=== PATIENT | male | born 1960 | race Caucasian/White ===

== ENCOUNTER 2017-03-25 14:26 | Emergency (ER) | payer SELFPAY ==
--- NOTE | 2017-03-25 15:34 | ERNOTE ---
Medical Problem HPI - General Chief Complaint: General Assessment Time Seen by Provider: 03/25/17 15:03 Source: patient Exam Limitations: no limitations - Immun/Allergies/Home Medications Allergies/Adverse Reactions: Allergies No Known Allergies Allergy (Verified 03/25/17 14:35) Home Medications: HOME MEDICATIONS Duloxetine HCl [Cymbalta] 60 mg PO DAILY #30 capsule. 03/25/17 [Last Taken Unknown] - History of Present History Narrative: Patient has had diabetic neuropathy for 8-9 years. he was on gapabentin first, then lyrica and most recently on cymbalta which has helped him well. Due to moving and loosing insurance he has been off his cymbalta for a few months and has had increasing severe pain in both legs. 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 He states that he still has his other medications, is taking his insulin as scheduled. He was in DKA earlier this year and admitted to the hospital, not sure what the cause was. He has been having 2-3 loose BM daily, cramping before, but no abdominal pain, no nausea or vomiting. when he checked his sugar this morning it was in the 190' s Review of Systems - Review of Systems Constitutional: Absent: recent illness ENT: Absent: nose congestion, sore throat Respiratory: Absent: shortness of breath, cough Cardiology: Absent: chest pain Gastrointestinal/Abdominal: Present: See HPI, diarrhea. Absent: nausea, vomiting Genitourinary: Present: no symptoms reported Musculoskeletal: Absent: back pain Neurological: Absent: See HPI, weakness, numbness - Patient's Past Medical History Patient History - Medical: Diabetes Type 2 Insulin Dependent, Other Patient History - Cardiac/Respiratory: Hypertension, Hyperlipidemia Patient History - Surgical Procedures: No surgical history - Family History Mother Family History - Medical: Diabetes Type 2 Father Family History - Medical: History Unknown - Social History Living Situations: home Psych History: Hx of Anxiety, Hx of Depression Smoking Status: Never smoker Have you smoked in the past 12 months: No Do you dip or chew tobacco: No Alcohol Use: none Drug Use: none Physical Exam - Physical Exam General Appearance: Present: wd/wn, alert, no apparent distress Respiratory: Present: no respiratory distress, normal breath sounds, no accessory muscle use, lungs clear Cardiovascular/Chest: Present: regular rate, rhythm, no murmur Peripheral Pulses: N=norm/S=strong/W=weak/B=bound/A=absent: Dorsalis-pedis (R): Normal, Dorsalis-pedis (L): Normal Gastrointestinal/Abdominal: Present: normal bowel sounds, nontender, nondistended, soft Extremity Exam: Present: normal inspection, non-tender, other - no sign of injury Neurological Exam: Present: alert, oriented, normal mood/affect Skin Exam: Present: normal color, warm/dry ED Progress - Results and Orders Patient's Lab Results:: I have reviewed the patient's lab results. - Vital Signs Patient's Vital Signs:: I have reviewed the patient's vital signs. Vital Signs: Vital Signs 03/25/17 14:30 Temperature 36.6 C Pulse Rate 72 Respiratory 16 Rate Blood Pressure 122/71 O2 Sat by Pulse 100 Oximetry - EKG EKG: NSR, no ST T wave changes, other - peaked T wave EKG read: Interp. by me - Progress/Reassessment Chief Complaint: General Assessment Progress Note-Subjective: 03/25/17 17:27 discussed elevated potassium, patient does not want to get admitted, will give insulin and albuterol and recheck potassium, still trying to obtain patient medication list, states he [facility] to [facility] 03/25/17 20:06 discussed repeat lab results with patient, still doesn't want to get admitted Departure Clinical Impression: Hyperkalemia Diabetic neuropathy Qualifiers: Diabetes mellitus type: type 2 Diabetes mellitus complication detail: diabetic polyneuropathy Qualified Code(s): E11.42 - Type 2 diabetes mellitus with diabetic polyneuropathy - Departure Disposition: Home self-care Condition: Good Instructions: Diabetic Neuropathy, Form - Excuse from Work, School, or Physical Activity Additional Instructions: take your insulin to keep your glucose controlled stop the lisinopril as it might increase your potassium have your potassium rechecked in 1-2days get started on the cymbalta again follow up with your doctor as scheduled in April Prescriptions: Duloxetine HCl [Cymbalta] 60 mg PO DAILY #30 capsule.
[2017-03-25 16:03] LABS: Hematocrit 36.5 % (42.0-52.0); Hemoglobin 12.5 gm/dL (13.5-18.0); Mean Cell Volume 94.8 fl (78-100); Mean Corpuscular Hemoglobin 32.5 pg (27-31); Mean Corpuscular Hgb Conc 34.2 g/dl (32-36); Mean Platelet Volume 9.1 fl (6.0-9.5); Neutrophil # 5.6 K/mm3 (1.3-6.0); Platelet Count 195 K/mm3 (150-450); Red Blood Count 3.85 M/mm3 (4.7-6.0); Red Cell Distribution Width 13.8 % (11.5-14.0); White Blood Count 8.3 K/mm3 (4.0-10.5)
[2017-03-25 16:13] LABS: Urine Bilirubin Negative (NEGATIVE); Urine Ketone Negative (NEGATIVE); Urine Nitrite Negative (NEGATIVE); Urine Protein Negative (NEGATIVE); Urine Specific Gravity 1.015 SP.GR. (1.005-1.030); Urine Urobilinogen Normal (NORMAL); Urine pH 5.5 pH (5.0-7.0)
[2017-03-25 16:26] LABS: Urine Appearance Clear; Urine Bacteria TRACE; Urine Blood 5 /ul (NEGATIVE); Urine Color Yellow; Urine RBC None Seen /hpf (0-5); Urine WBC None Seen /hpf (0-5)
[2017-03-25 16:28] LABS: ALT 21 U/L (19-67); AST 13 U/L (0-48); Albumin * 4.1 gm/dl (3.4-5.0); Alkaline Phosphatase * 110 U/L (50-170); Anion Gap 14.6 mmol/L (6.8-13.8); BUN/Creatinine Ratio 21.9 (9.0-21.6); Bilirubin, Total 0.7 mg/dL (0.0-1.1); Blood Urea Nitrogen 25 mg/dL (6-23); Ca. Corrected For Albumin 8.3 mg/dL (8.4-10.2); Calcium * 8.7 mg/dL (7.9-10.9); Carbon Dioxide 24.5 mmol/L (24-32.6); Chloride 103 mmol/L (97-106); Glucose * 317 mg/dL (70-110); Potassium 6.1 mmol/L (3.4-4.6); Sodium 136 mmol/L (132-142); Total Protein 7.6 gm/dL (6.2-8.2)
[2017-03-25] MEDS ORDERED: INSULIN LISPRO 100 UNITS/ML VIAL SC ONE (17:22)
[2017-03-25] MEDS ORDERED: ALBUTEROL SULFATE 2.5 MG/0.5 ML VIAL.NEB IH ONE ×2 (17:23→17:44)
[2017-03-25] MEDS ORDERED: INSULIN LISPRO 100 UNITS/ML VIAL ONE (17:32)
[2017-03-25 19:28] LABS: Potassium 5.7 mmol/L (3.4-4.6)
[2017-03-25 20:20] VITALS: BP 102/69
== END 2017-03-25 20:16 | disposition home or self-care (01) ==
LOC: ER 14:26
DX: E87.5 Hyperkalemia (principal); E11.42 Type 2 diabetes mellitus with diabetic polyneuropathy

== ENCOUNTER 2017-03-26 13:25 | Observation (INO) | payer SELFPAY ==
[2017-03-26 14:31] LABS: Hematocrit 34.9 % (42.0-52.0); Hemoglobin 11.8 gm/dL (13.5-18.0); Mean Cell Volume 94.8 fl (78-100); Mean Corpuscular Hemoglobin 32.1 pg (27-31); Mean Corpuscular Hgb Conc 33.8 g/dl (32-36); Mean Platelet Volume 9.3 fl (6.0-9.5); Neutrophil # 3.4 K/mm3 (1.3-6.0); Neutrophil % 54.6 % (42-75.0); Platelet Count 196 K/mm3 (150-450); Red Blood Count 3.68 M/mm3 (4.7-6.0); Red Cell Distribution Width 13.7 % (11.5-14.0); White Blood Count 6.1 K/mm3 (4.0-10.5)
[2017-03-26 14:40] LABS: Anion Gap 13.9 mmol/L (6.8-13.8); Calcium * 8.7 mg/dL (7.9-10.9); Carbon Dioxide 26.5 mmol/L (24-32.6); Estimated Creat Clear 68.4; Magnesium 1.9 mg/dL (1.2-2.8); Potassium 6.4 mmol/L (3.4-4.6)
--- NOTE | 2017-03-26 14:40 | ERNOTE ---
Medical Problem HPI - General Chief Complaint: General Assessment Time Seen by Provider: 03/26/17 14:01 Source: patient Exam Limitations: no limitations - Immun/Allergies/Home Medications Immunizations: IMMUNIZATION HX Immunizations Up to Date Yes History of Influenza Vaccine More Information Required Hx Pneumococcal Vaccination More Information Required Allergies/Adverse Reactions: Allergies No Known Allergies Allergy (Verified 03/25/17 14:35) Home Medications: HOME MEDICATIONS Duloxetine HCl [Cymbalta] 60 mg PO DAILY #30 capsule. 03/25/17 [Last Taken Unknown] Atenolol [Tenormin] 25 mg PO DAILY 03/26/17 [Last Taken Unknown] Atorvastatin Calcium 40 mg PO DAILY 03/26/17 [Last Taken Unknown] Insul NPH Hu Rec/Ins Rg Hu Rec [Novolin 70/30 100U/ml] 40 units SQ BID 03/26/17 [Last Taken Unknown] LORazepam [Ativan] 1 mg PO HS 03/26/17 [Last Taken Unknown] Lisinopril/Hydrochlorothiazide [Lisinopril-Hctz 10-12.5 mg Tab] 1 each PO DAILY 03/26/17 [Last Taken Unknown] metFORMIN HCL [Fortamet] 1,000 mg PO DAILY 03/26/17 [Last Taken Unknown] - History of Present History Narrative: Patient was seen here last night and was treated for his hyperglycemia with concomitant hyperkalemia. Patient was given IV fluids and insulin and both his blood sugar and his potassium came down. He is instructed to come to the lab to recheck his potassium and when he called his family doctor they told him to come back to the emergency department. Patient has no complaint to speak of and we will recheck his laboratory tests here in the ED. Review of Systems - Review of Systems Constitutional: Present: See HPI EYE: Present: no symptoms reported ENT: Present: no symptoms reported Respiratory: Present: no symptoms reported Cardiology: Present: no symptoms reported Gastrointestinal/Abdominal: Present: no symptoms reported Genitourinary: Present: no symptoms reported Musculoskeletal: Present: no symptoms reported Skin: Present: no symptoms reported Neurological: Present: no symptoms reported Endocrine: Present: no symptoms reported Hematologic/Lymphatic: Present: no symptoms reported Psych: Present: no symptoms reported - Patient's Past Medical History Patient History - Medical: Diabetes Type 2 Insulin Dependent, Other Patient History - Cardiac/Respiratory: Hypertension, Hyperlipidemia Patient History - Surgical Procedures: No surgical history - Family History Mother Family History - Medical: Diabetes Type 2 Father Family History - Medical: History Unknown - Social History Psych History: Hx of Anxiety, Hx of Depression - Immunizations Immunizations Up to Date: Yes Hx Pneumococcal Vaccination: More Information Required to Determine History of Influenza Vaccine: More Information Required to Determine Physical Exam - Physical Exam General Appearance: Present: wd/wn, alert, no apparent distress Eye Exam: Normal inspection: bilateral, PERRL: bilateral Ears, Nose, Throat: Present: normal ENT inspection, H, normal pharynx Neck: Present: normal inspection, nontender Respiratory: Present: no respiratory distress, normal breath sounds, no accessory muscle use, chest nontender, lungs clear Cardiovascular/Chest: Present: regular rate, rhythm, no murmur, normal peripheral pulses Gastrointestinal/Abdominal: Present: normal bowel sounds, nontender, nondistended, soft, no organomegaly Rectal Exam: Present: deferred Back Exam: Present: normal inspection, normal range of motion Extremity Exam: Present: normal inspection, non-tender, no edema, normal range of motion Neurological Exam: Present: alert, oriented, normal mood/affect Skin Exam: Present: normal color, warm/dry Lymphatic Exam: Present: no adenopathy ED Progress - Results and Orders Patient's Lab Results:: I have reviewed the patient's lab results. - Vital Signs Patient's Vital Signs:: I have reviewed the patient's vital signs. Vital Signs: Vital Signs 03/26/17 03/26/17 13:41 14:14 Temperature 36.8 C Pulse Rate 70 68 Respiratory 20 12 Rate Blood Pressure 108/78 116/42 O2 Sat by Pulse 100 98 Oximetry - EKG EKG: NSR EKG read: Interp. by me - Progress/Reassessment Chief Complaint: General Assessment Plan - Plan Plan: Patient will be admitted to the care of Dr. Reynolds. Unclear etiology for the elevated potassium, other than perhaps chronically elevated blood sugar. I'm not convinced that the patient's been taken his lisinopril hydrochlorothiazide to help control blood pressure as this would most likely help drive the potassium back into the normal range. Patient was given 50 mg of Kayexalate emergency department and will be admitted to a telemetry bed. Departure Clinical Impression: Hyperkalemia Hyperglycemia due to type 2 diabetes mellitus Qualifiers: Diabetes mellitus moth exterminator insulin use: with moth exterminator use Qualified Code(s): E11.65 - Type 2 diabetes mellitus with hyperglycemia; Z79.4 - retirement (current ) use of insulin; Z79.4 - long term care pharmacist (current) use of insulin; Z79.4 - long term care pharmacist (current) use of insulin; Z79.4 - long term care pharmacist (current) use of insulin - Departure Disposition: [facility] Condition: Fair
[2017-03-26] MEDS ORDERED: SODIUM POLYSTYRENE SULFON/SORB 15 G/60 ML BTL PO ONE (15:09)
[2017-03-26] MEDS ORDERED: SODIUM POLYSTYRENE SULFON/SORB 15 G/60 ML BTL ONE (15:29)
[2017-03-26] MEDS ORDERED: FLU VACC QS2017-18(6MOS UP)/PF 60 MCG/0.5 ML SYRINGE IM ONE (16:27)
[2017-03-26] MEDS: ACETAMINOPHEN 325 MG TABLET PO PRN ×2 (17:51→22:58)
--- NOTE | 2017-03-26 19:40 | HP ---
Chief Complaint - Chief Complaint Date of Service: 03/26/17 Time of Service: 19:26 Chief Complaint: hyperkalemia History of Present Illness: Patient is a 56 year old male with a past medical history significant for HTN, HLD, and DMII who presented last evening to the ER with elevated glucose (300) and potassium. He was discharged and upon followup labs today, his potassium was elevated even more to 6.4. He will be admitted to observation overnight for continuous telemetry monitoring and serial laboratory work. He received 15mg of kayexelate in the ER. - Patient's Past Medical History Patient History - Medical: Diabetes Type 2 Insulin Dependent, Other Patient History - Cardiac/Respiratory: Hypertension, Hyperlipidemia Patient History - Surgical Procedures: No surgical history Patient History - Other: None - Family History Family History:: no untoward family reactions to anesthesia, no familial bleeding tendencies, no family history of clotting disorders, no family history of premature - Family History Mother Family History - Medical: Diabetes Type 2 Insulin Dependent Father Family History - Medical: History Unknown Brother Family History - Medical: Diabetes Type 2 Insulin Dependent - Social History Living Situations: other Psych History: Hx of Anxiety, Hx of Depression Smoking Status: Never smoker Have you smoked in the past 12 months: No Do you dip or chew tobacco: No Alcohol Use: none Drug Use: none - Immunizations Immunizations Up to Date: No Hx Pneumococcal Vaccination: No History of Influenza Vaccine: No Review Of Systems (GEN) - Review of Systems Generalized/Overall Review: Present: No Symptoms Reported EENTM: Present: No Symptoms Reported Respiratory: Present: No Symptoms Reported Cardiac: Present: No Symptoms Reported Abdominal: Present: Diarrhea Musculoskeletal: Present: No Symptoms Reported Neurological: Present: No Symptoms Reported Skin: Present: No Symptoms Reported Endocrine: Present: No Symptoms Reported Immunizations: IMMUNIZATION HX Immunizations Up to Date Yes History of Influenza Vaccine More Information Required Hx Pneumococcal Vaccination More Information Required Allergies/Adverse Reactions: Allergies Allergy/AdvReac Type Severity Reaction Status Date / Time No Known Allergies Allergy Verified 03/26/17 17:23 Home Medications: HOME MEDICATIONS Duloxetine HCl [Cymbalta] 60 mg PO DAILY #30 capsule. 03/25/17 [Last Taken Unknown] Atenolol [Tenormin] 25 mg PO DAILY 03/26/17 [Last Taken Unknown] Atorvastatin Calcium [Lipitor] 40 mg PO HS 03/26/17 [Last Taken Unknown] Insul NPH Hu Rec/Ins Rg Hu Rec [Novolin 70/30 100U/ml] 40 units SQ BID 03/26/17 [Last Taken Unknown] LORazepam [Ativan] 1 mg PO HS 03/26/17 [Last Taken Unknown] Lisinopril/Hydrochlorothiazide [Lisinopril-Hctz 10-12.5 mg Tab] 1 each PO DAILY 03/26/17 [Last Taken Unknown] metFORMIN HCL [Fortamet] 1,000 mg PO DAILY 03/26/17 [Last Taken Unknown] Exam - Exam Vital Signs: Vital Signs - Last Taken Temp 36.8 C 03/26/17 19:10 Pulse 63 03/26/17 19:10 Resp 18 03/26/17 19:10 BP 111/65 03/26/17 19:10 Pulse Ox 98 RA 03/26/17 19:10 Constitutional: Present: Alert, Oriented x3, Cooperative, No distress ENT Exam: Present: normal ENT inspection Eye Exam: bilateral eye: normal inspection, PERRL Back Exam: Present: normal inspection, no CVA tenderness, no vertebral tenderness Respiratory: Present: chest non-tender, lungs clear, normal breath sounds, no respiratory distress, no accessory muscle use Cardiovascular/Chest: Present: normal peripheral pulses, regular rate, rhythm, no chest tenderness, no edema, no gallop, no JVD, no murmur Peripheral Pulses: dorsalis-pedis (R): 2+, dorsalis-pedis (L): 2+, radial (R): 2 +, radial (L): 2+ Abdomen: Present: Normal bowel sounds, soft, nontender, nondistended, no rebound tenderness, no hepatospenomegaly, no masses Extremity: Present: normal range of motion, non-tender, normal inspection, no pedal edema, no calf tenderness, normal capillary refill Skin Exam: Present: normal color, warm/dry, no cyanosis Lymphatic: Present: no adenopathy Neurologic: Present: no motor/sensory deficits, alert, normal mood/affect, oriented x 3 Appearance: Present: appropriate appearance, neat, no memory impairment Eye contact: Present: cooperative Thoughts: Present: normal thought pattern Diagnostic Studies: Laboratory Results Laboratory Tests 03/26/17 03/26/17 14:20 14:20 WBC 6.1 D RBC 3.68 L Hgb 11.8 L Hct 34.9 L Plt Count 196 Sodium 138 Potassium 6.4 H Chloride 104 Carbon Dioxide 26.5 Anion Gap 13.9 H BUN 28 H Creatinine 1.22 Random Glucose 204 H Calcium 8.7 Magnesium 1.9 Assessment/Plan - Assessment/Plan (1) Noncompliance with medication regimen Assessment: Pt is very well educated on 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 He understand the complications of poorly controlled diabetes. He attributes most of his noncompliance with his insulin regimen due to work as he works variable shifts and doesn't always take his insulin at the schedule time. He also admits he only occasional follows a diabetic diet. He verbalizes understanding of the importance to continue to maintain proper control of his diabetes with strict adherence to his medication regimen and diet. Problem: Acute (2) Hyperglycemia due to type 2 diabetes mellitus Assessment: Pt with history of medication noncompliance and elevated glucose levels resulting in hypercalemia. Will resume current regimen, check blood glucose levels ac/hs, place on consistent carb diet, and provide diabetic teaching. Problem: Chronic Qualifiers: Diabetes mellitus terminal gauger insulin use: with assisted use Qualified Code( s): E11.65 - Type 2 diabetes mellitus with hyperglycemia; Z79.4 - care home ( current) use of insulin; Z79.4 - terminal gauger (current) use of insulin; Z79.4 - terminal gauger (current) use of insulin; Z79.4 - terminal gauger (current) use of insulin (3) Hyperkalemia Assessment: Hyperkalemia secondary to elevated glucose secondary to medication noncompliance. Will recheck potassium now, pt denies any bowel movements since the administration of kayexelate in ER. Will continue cardiac monitoring overnight to monitor for arrhythmias. Problem: Acute (4) HTN (hypertension) Assessment: Will continue home regimen. On HCTZ, could be attributing to hyperkalemia, will reassess this in am. BP has been properly controlled since admission. Problem: Acute (5) Diabetic neuropathy Problem: Chronic
[2017-03-26] MEDS ORDERED: INSUL NPH HU REC/INS RG HU REC 100 UNITS/ML VIAL SC SCH (21:00)
[2017-03-26] MEDS ORDERED: ATORVASTATIN CALCIUM 40 MG TABLET PO SCH (21:00)
[2017-03-26] MEDS ORDERED: LORazepam 1 MG TABLET PO SCH (21:00)
[2017-03-26] MEDS ORDERED: HUM INSULIN NPH/REG INSULIN HM 100 UNIT/ML VIAL SC ONE (21:25)
[2017-03-26] MEDS: HUM INSULIN NPH/REG INSULIN HM 100 UNIT/ML VIAL SC SCH (21:47)
[2017-03-27 06:04] LABS: Albumin * 3.5 gm/dl (3.4-5.0); Anion Gap 13.3 mmol/L (6.8-13.8); BUN/Creatinine Ratio 27.5 (9.0-21.6); Bilirubin, Total 0.4 mg/dL (0.0-1.1); Ca. Corrected For Albumin 8.7 mg/dL (8.4-10.2); Calcium * 8.6 mg/dL (7.9-10.9); Carbon Dioxide 25.1 mmol/L (24-32.6); Potassium 4.4 mmol/L (3.4-4.6); Total Protein 6.5 gm/dL (6.2-8.2)
[2017-03-27 06:41] VITALS: BP 127/62
[2017-03-27] MEDS: HUM INSULIN NPH/REG INSULIN HM 100 UNIT/ML VIAL SC SCH (08:29)
[2017-03-27] MEDS ORDERED: HYDROCHLOROTHIAZIDE 12.5 MG CAPSULE PO SCH (09:00)
[2017-03-27] MEDS ORDERED: HUM INSULIN NPH/REG INSULIN HM 100 UNIT/ML VIAL SC SCH (09:00)
[2017-03-27] MEDS ORDERED: LISINOPRIL 10 MG TABLET PO SCH (09:00)
[2017-03-27] MEDS ORDERED: DULoxetine HCL 30 MG CAPSULE.SA PO SCH (09:00)
[2017-03-27] MEDS ORDERED: ATENOLOL 25 MG TABLET PO SCH (09:00)
--- NOTE | 2017-03-27 09:12 | DS ---
(1) Hyperkalemia Problem: Resolved (2) Noncompliance with medication regimen Problem: Chronic (3) Hyperglycemia due to type 2 diabetes mellitus Problem: Chronic Qualifiers: Diabetes mellitus oysterman insulin use: with oysterman use Qualified Code( s): E11.65 - Type 2 diabetes mellitus with hyperglycemia; Z79.4 - laborer marine terminal ( current) use of insulin; Z79.4 - laborer marine terminal (current) use of insulin; Z79.4 - laborer marine terminal (current) use of insulin; Z79.4 - senior living (current) use of insulin Description of Stay: ADMISSION DATE: 03/26/2017 DISCHARGE DATE: 03/27/2017 ADMISSION HPI by HATTIE Castillo: Patient is a 56 year old male with a past medical history significant for HTN, HLD, and DMII who presented last evening to the ER with elevated glucose (300) and potassium. He was discharged and upon followup labs today, his potassium was elevated even more to 6.4. He will be admitted to observation overnight for continuous telemetry monitoring and serial laboratory work. He received 15mg of kayexelate in the ER. HOSPITAL COURSE: The patient was admitted with hyperglycemia and hyperkalemia secondary to medication noncompliance. The patients hyperglycemia was treated with insulin during his admission and he was instructed and encouraged to take his home medications as prescribed and have close follow-up with his primary care provider. He was also given Kayexalate for his hyperkalemia and potassium level returned to normal and was 4.4 the a.m. of discharge. The patient was discharged home in stable condition and given work note that he could return to work with no restrictions on 03/28/2017. Given the patients hyperkalemia on presentation, I recommend checking a BMP within the next week or at follow-up with his PCP. FOLLOW-UP APPOINTMENTS: PCP within 1-2 weeks. Check BMP within 1 week. NEW OR CHANGED MEDICATIONS: None DISCONTINUED MEDICATIONS: None RADIOLOGY REPORTS: None Procedures Performed: none Results and Findings: Laboratory Tests 03/26/17 03/26/17 03/26/17 14:20 14:20 22:00 WBC 6.1 D Hgb 11.8 L Hct 34.9 L MCV 94.8 Plt Count 196 Sodium 138 Plasma Sodium 140 Potassium 6.4 H 5.0 H D Chloride 104 Carbon Dioxide 26.5 Anion Gap 13.9 H BUN 28 H Creatinine 1.22 Est GFR (Non-Af Amer) 66 BUN/Creatinine Ratio 23.0 H Random Glucose 204 H Calcium 8.7 Calcium Adj for Albumin Magnesium 1.9 Total Bilirubin AST ALT Alkaline Phosphatase Total Protein Albumin 03/27/17 05:35 WBC Hgb Hct MCV Plt Count Sodium 143 H Plasma Sodium 142 Potassium 4.4 Chloride 109 H Carbon Dioxide 25.1 Anion Gap 13.3 BUN 25 H Creatinine 0.91 Est GFR (Non-Af Amer) 92 D BUN/Creatinine Ratio 27.5 H Random Glucose 57 L D Calcium 8.6 Calcium Adj for Albumin 8.7 Magnesium Total Bilirubin 0.4 AST 12 ALT 18 L Alkaline Phosphatase 88 Total Protein 6.5 Albumin 3.5 Discharge Disposition: Home self care Disposition: Home self-care Condition: Stable Discharge Activity: Activity as tolerated Discharge Diet: Consistent carbs Problem Oriented Discharge Instructions to Patient/Family: Hyperkalemia, Easy- to-Read, Blood Glucose Monitoring, Adult Additional Patient Instructions (free text): Follow-up with PCP within 1-2 weeks follow up made for 03-31-17 @ 2:00pm with PCP at [facility] with Dr. Lockhart .phone # [phone] records faxed to [phone] for follow up cares. Check BMP within 1 week Complete Home Medications List: Complete Home Medication List: Duloxetine HCl [Cymbalta] 60 mg PO DAILY #30 capsule. 03/25/17 Atenolol [Tenormin] 25 mg PO DAILY 03/26/17 Atorvastatin Calcium [Lipitor] 40 mg PO HS 03/26/17 Insul NPH Hu Rec/Ins Rg Hu Rec [Novolin 70/30] 40 units SQ BID 03/26/17 LORazepam [Ativan] 1 mg PO HS 03/26/17 Lisinopril/Hydrochlorothiazide [Lisinopril-Hctz 10-12.5 mg Tab] 1 each PO DAILY 03/26/17 metFORMIN HCL [Fortamet] 1,000 mg PO DAILY 03/26/17 Amb Orders for Discharge: Basic Metabolic Panel Time Frame: 1 Week, Location: Determined By Patient
== END 2017-03-27 10:11 | disposition home or self-care (01) ==
LOC: ER 13:25 → MS 15:21
PROVIDERS: ADMIT Internal Medicine; ATTEND Internal Medicine
DX: E87.5 Hyperkalemia (principal); E11.65 Type 2 diabetes mellitus with hyperglycemia; E11.40 Type 2 diabetes mellitus with diabetic neuropathy, unspecified; Z79.4 Long term (current) use of insulin; Z91.128 Patient's intentional underdosing of medication regimen for other reason; I10 Essential (primary) hypertension; E78.5 Hyperlipidemia, unspecified; Z68.30 Body mass index [BMI] 30.0-30.9, adult; Z23 Encounter for immunization
CPT/HCPCS: 36415; 80048; 80053; 83735; 84132; 85025; 90471; 90686; 93005; 96372; 99285; G0378